=== PATIENT | male | born 1975 | race Caucasian/White ===

== ENCOUNTER 2016-09-22 09:45 | Emergency (ER) | payer OTHER ==
[2016-09-22] MEDS ORDERED: Sodium Chloride 0.9% 2.5 ML Syringe FLUSH PRN (10:22)
[2016-09-22] MEDS ORDERED: Sodium Chloride 0.9% 10 ML Syringe FLUSH PRN (10:22)
[2016-09-22] MEDS ORDERED: Sodium Chloride 0.9% 1,000 ML IV ONE (10:25)
--- NOTE | 2016-09-22 10:33 | EDM.PDOC ---
ED HPI GENERAL MEDICAL PROBLEM - General Chief Complaint: Behavioral/Psych Stated Complaint: ALCOHOL AND DRUG ABUSE Time Seen by Provider: 09/22/16 10:02 - History of Present Illness INITIAL COMMENTS - FREE TEXT/NARRATIVE: HISTORY AND PHYSICAL: History of present illness: The patient is a 41-year-old male with a long-standing history of alcohol abuse and alcoholism who presents today with his after expressing suicidal ideation and hopelessness this morning to his . According to the he has had alcohol problems on and off for long time and it has worsened over the last 6 months and intensified to "drinking until he passes out" the last 3 months. The states that she has noted that he has been very anxious when he is not drinking but he is not vomiting or having any systemic complaints and the patient concurs. She says that when he is drinking he "doesn't care about anything" and she works 2 jobs so she can't assess what is going on when she is not there and she feels unsafe with him at home in this state of mind. According to the patient he has been feeling more depressed and having suicidal thoughts over the last one week but he did not formulate a specific plan but kept thinking that his 4 children would be " better off without him". The patient stated to the today that the only reason why he hasn't formulated a plan and killed himself is because he does not have a life insurance policy and that if he he would be even more of a burden to his family. The says that he has never said anything like this to her in the past so she encouraged him to come here today for help and he agreed. They have been working with their primary care provider to try to get outpatient care for his alcoholism and his depression but they have not gotten any return phone calls from the messages they have left and do not feel that they can move forward in getting help and are at a loss for what to do next. Patient says he does want help and that if he could get better would not feel so hopeless and useless to his family. Medically the patient has a history of hypertension hypercholesterolemia and low testosterone. The patient has followed in our clinic and now is currently affiliated with [facility]. Is not eating as healthfully or as much as usual and does not hydrate much and is drinking mostly consists of hard liquor and large volumes each night. In the ED the patient denies any abdominal pain nausea vomiting fever chills chest pain and consciousness or shakiness. He is not had no recent falls and has no head neck or back pain no extremity complaints. According to the patient and his last drink was approximately 8 or 9 PM yesterday. Review of systems: As per history of present illness and below otherwise all systems reviewed and negative. Past medical history: As per history of present illness and as reviewed below otherwise noncontributory. Surgical history: As per history of present illness and as reviewed below otherwise noncontributory. Social history: No reported history of drug or alcohol abuse. Family history: As per history of present illness and as reviewed below otherwise noncontributory. Physical exam: General: Well-developed mildly overweight male who is nontoxic and is forthcoming with information but is very quiet and somewhat withdrawn. he is occasionally tearful with certa this has been reviewed by me in questions. HEENT: Atraumatic, normocephalic, pupils reactive, negative for conjunctival pallor or scleral icterus, mucous membranes moist tachycardia Lungs: Clear to auscultation, breath sounds equal bilaterally, chest nontender. Heart: S1S2, regular rhythm with slight tachycardia on my evaluation , negative for clicks, rubs, or JVD. Abdomen: Soft, nondistended, nontender. Negative for masses or hepatosplenomegaly. Negative for costovertebral tenderness. Pelvis: Stable nontender. Genitourinary: Deferred. Rectal: Deferred. Extremities: Atraumatic, negative for cords or calf pain. Neurovascular unremarkable. full range of motion without defects or deficits Neuro: Awake, alert, oriented. Cranial nerves II through XII unremarkable. Cerebellum unremarkable. Motor and sensory unremarkable throughout. Exam nonfocal. date is intact. There is no overt tremulousness Diagnostics: EKG CBC CMP TSH UA UDS aspirin and Tylenol levels magnesium level alcohol level Therapeutics: IV fluids, Ativan and as needed and Zofran as needed, banana bag Please note that the patient tells nursing that he did not take his blood pressure medication last night or today so I will give him a dose of each of his medications here in the ER. His repeat blood pressure prior to me dosing these meds as 185/95 1136: Case was discussed with the psychiatrist at [facility] in [place], Dr. Najera who accepts the patient for transfer 1139: Case was discussed with the ER physician at [facility], Dr. Vang will also accepts the patient for transfer. She is aware of all testing results and I will do an SARITA and plan for transfer by ambulance. Patient and are aware of these conversations and our agreement. Patient does not feel shaky or tremulous he has had no nausea no abdominal complaints and states he is hungry with will give him something by prior to the transfer. Impression: Depression with suicidal ideation and alcoholism Definitive disposition and diagnosis as appropriate pending reevaluation and review of above. - Related Data Allergies Allergy/AdvReac Type Severity Reaction Status Date / Time No Known Allergies Allergy Verified 09/22/16 09:57 Home Meds: Home Meds Losartan/Hydrochlorothiazide [Losartan-HCTZ 100-12.5 MG] 1 tab PO DAILY [History] Metoprolol Succinate [Toprol XL] 25 mg PO DAILY 09/22/16 [History] Rosuvastatin [Crestor] 10 mg PO BEDTIME 09/22/16 [History] Sertraline [Zoloft] 100 mg PO BID 09/22/16 [History] tiZANidine [Zanaflex] 4 mg PO ASDIRECTED 09/22/16 [History] Past Medical History Cardiovascular History: Reports: High cholesterol, Hypertension Musculoskeletal History: Reports: Back pain, chronic Psychiatric History: Reports: Addiction, Anxiety, Depression, Other (see below) Other Psychiatric History: Alcoholism Endocrine/Metabolic History: Reports: Obesity/BMI 30+, Other (see below) Other Endocrine/Metabolic History: Borderline DM, low testosterone Social & Family History - Family History Family Medical History: Noncontributory - Tobacco Use Smoking Status *Q: Never Smoker - Caffeine Use Caffeine Use: Reports: Coffee - Recreational Drug Use Recreational Drug Use: No ED ROS GENERAL - Review of Systems Review Of Systems: ROS reveals no pertinent complaints other than HPI. ED EXAM, GENERAL - Physical Exam Exam: See Below (see dictation) Course - Vital Signs Last Recorded V/S: Last Vital Signs Temp 36.9 C 09/22/16 10:04 Pulse 98 09/22/16 11:39 Resp 16 09/22/16 10:04 BP 173/88 H 09/22/16 11:39 Pulse Ox 95 09/22/16 10:04 - Orders/Labs/Meds Orders: Active Orders 24 hr Category Date Time Status EKG Documentation Completion [RC] STAT Care 09/22/16 10:24 Active Sodium Chloride 0.9% [Saline Flush] Med 09/22/16 10:22 Active 10 ml FLUSH ASDIRECTED PRN Sodium Chloride 0.9% [Saline Flush] Med 09/22/16 10:22 Active 2.5 ml FLUSH ASDIRECTED PRN Thiamine [Vitamin B-1] 100 mg Med 09/22/16 11:45 Ordered Sodium Chloride 0.9% [Normal Saline] 100 ml IV ONETIME Saline Lock Insert [OM.PC] Stat Oth 09/22/16 10:23 Ordered Medication Orders Thiamine HCl 100 mg/ Sodium (Chloride) 101 mls @ 999 mls/hr IV ONETIME ONE Stop: 09/22/16 11:51 Sodium Chloride (Saline Flush) 10 ml FLUSH ASDIRECTED PRN PRN Reason: Keep Vein Open Sodium Chloride (Saline Flush) 2.5 ml FLUSH ASDIRECTED PRN PRN Reason: Keep Vein Open Labs: Laboratory Tests 09/22/16 09/22/16 09/22/16 Range/Units 10:29 10:29 10:35 WBC 6.95 (4.0-11.0) K/uL RBC 5.62 (4.50-5.90) M/uL Hgb 16.9 (13.0-17.0) g/dL Hct 48.0 (38.0-50.0) % MCV 85.4 (80.0-98.0) fL MCH 30.1 (27.0-32.0) pg MCHC 35.2 (31.0-37.0) g/dL RDW Std Deviation 40.3 (28.0-62.0) fl RDW Coeff of Abhijit 13 (11.0-15.0) % Plt Count 225 (150-400) K/uL MPV 9.30 (7.40-12.00) fL Neut % (Auto) 62.2 (48.0-80.0) % Lymph % (Auto) 29.6 (16.0-40.0) % Weston % (Auto) 5.9 (0.0-15.0) % Eos % (Auto) 1.9 (0.0-7.0) % Baso % (Auto) 0.4 (0.0-1.5) % Neut # (Auto) 4.3 (1.4-5.7) K/uL Lymph # (Auto) 2.1 (0.6-2.4) K/uL Weston # (Auto) 0.4 (0.0-0.8) K/uL Eos # (Auto) 0.1 (0.0-0.7) K/uL Baso # (Auto) 0.0 (0.0-0.1) K/uL Nucleated RBC % 0.0 /100WBC Nucleated RBCs # 0 K/uL Sodium (136-146) mmol/L Potassium (3.5-5.1) mmol/L Chloride (98-110) mmol/L Carbon Dioxide (21-31) mmol/L BUN (6.0-23.0) mg/dL Creatinine (0.6-1.5) mg/dL Est Cr Clr Drug Dosing mL/min Estimated GFR (MDRD) ml/min Glucose (60-110) mg/dL Calcium (8.8-10.8) mg/dL Magnesium (1.5-2.3) mEq/L Total Bilirubin (0.1-1.5) mg/dL AST (5-40) IU/L ALT (8-54) IU/L Alkaline Phosphatase (40-150) Total Protein (6.0-8.0) g/dL Albumin (3.5-5.0) g/dL Globulin (2.0-3.5) g/dL Albumin/Globulin Ratio (1.3-2.8) TSH 3rd Generation (0.47-5.0) uIU/mL Urine Color DARK YELLOW Urine Appearance CLEAR Urine pH 5.5 (5.0-8.0) Ur Specific [place] >= 1.030 (1.001-1.035) Urine Protein 100 (NEGATIVE) mg/dL Urine Glucose (UA) NEGATIVE (NEGATIVE) mg/dL Urine Ketones TRACE H (NEGATIVE) mg/dL Urine Occult Blood NEGATIVE (NEGATIVE) Urine Nitrite NEGATIVE (NEGATIVE) Urine Bilirubin NEGATIVE (NEGATIVE) Urine Urobilinogen 0.2 (<2.0) EU/dL Ur Leukocyte Esterase NEGATIVE (NEGATIVE) Urine RBC 0-2 (0-2/HPF) Urine WBC 0-1 (0-5/HPF) Ur Epithelial Cells RARE (NONE-FEW) Ur Renal Epithelial Cell RARE Amorphous Sediment LIGHT (NEGATIVE) Urine Bacteria FEW (NEGATIVE) Urine Mucus LIGHT (NONE-MOD) Salicylates (0-20) mg/dL Urine Opiates Screen NEGATIVE (NEGATIVE) Ur Oxycodone Screen NEGATIVE (NEGATIVE) Urine Methadone Screen NEGATIVE (NEGATIVE) Acetaminophen ug/mL Ur Barbiturates Screen NEGATIVE (NEGATIVE) Ur Phencyclidine Scrn NEGATIVE (NEGATIVE) Ur Amphetamine Screen NEGATIVE (NEGATIVE) U Methamphetamines Scrn NEGATIVE (NEGATIVE) U Benzodiazepines Scrn NEGATIVE (NEGATIVE) U Cocaine Metab Screen NEGATIVE (NEGATIVE) U Marijuana (THC) Screen NEGATIVE (NEGATIVE) Ethyl Alcohol mg/dL 09/22/16 Range/Units 10:35 WBC (4.0-11.0) K/uL RBC (4.50-5.90) M/uL Hgb (13.0-17.0) g/dL Hct (38.0-50.0) % MCV (80.0-98.0) fL MCH (27.0-32.0) pg MCHC (31.0-37.0) g/dL RDW Std Deviation (28.0-62.0) fl RDW Coeff of Abhijit (11.0-15.0) % Plt Count (150-400) K/uL MPV (7.40-12.00) fL Neut % (Auto) (48.0-80.0) % Lymph % (Auto) (16.0-40.0) % Weston % (Auto) (0.0-15.0) % Eos % (Auto) (0.0-7.0) % Baso % (Auto) (0.0-1.5) % Neut # (Auto) (1.4-5.7) K/uL Lymph # (Auto) (0.6-2.4) K/uL Weston # (Auto) (0.0-0.8) K/uL Eos # (Auto) (0.0-0.7) K/uL Baso # (Auto) (0.0-0.1) K/uL Nucleated RBC % /100WBC Nucleated RBCs # K/uL Sodium 139 (136-146) mmol/L Potassium 4.3 (3.5-5.1) mmol/L Chloride 105 (98-110) mmol/L Carbon Dioxide 21 (21-31) mmol/L BUN 21 (6.0-23.0) mg/dL Creatinine 1.1 (0.6-1.5) mg/dL Est Cr Clr Drug Dosing 98.96 mL/min Estimated GFR (MDRD) > 60.0 ml/min Glucose 146 H (60-110) mg/dL Calcium 9.7 (8.8-10.8) mg/dL Magnesium 1.6 (1.5-2.3) mEq/L Total Bilirubin 0.6 (0.1-1.5) mg/dL AST 70 H (5-40) IU/L ALT 183 H (8-54) IU/L Alkaline Phosphatase 74 (40-150) Total Protein 8.0 (6.0-8.0) g/dL Albumin 4.7 (3.5-5.0) g/dL Globulin 3.3 (2.0-3.5) g/dL Albumin/Globulin Ratio 1.4 (1.3-2.8) TSH 3rd Generation 0.83 (0.47-5.0) uIU/mL Urine Color Urine Appearance Urine pH (5.0-8.0) Ur Specific [place] (1.001-1.035) Urine Protein (NEGATIVE) mg/dL Urine Glucose (UA) (NEGATIVE) mg/dL Urine Ketones (NEGATIVE) mg/dL Urine Occult Blood (NEGATIVE) Urine Nitrite (NEGATIVE) Urine Bilirubin (NEGATIVE) Urine Urobilinogen (<2.0) EU/dL Ur Leukocyte Esterase (NEGATIVE) Urine RBC (0-2/HPF) Urine WBC (0-5/HPF) Ur Epithelial Cells (NONE-FEW) Ur Renal Epithelial Cell Amorphous Sediment (NEGATIVE) Urine Bacteria (NEGATIVE) Urine Mucus (NONE-MOD) Salicylates < 5.0 (0-20) mg/dL Urine Opiates Screen (NEGATIVE) Ur Oxycodone Screen (NEGATIVE) Urine Methadone Screen (NEGATIVE) Acetaminophen < 3.0 ug/mL Ur Barbiturates Screen (NEGATIVE) Ur Phencyclidine Scrn (NEGATIVE) Ur Amphetamine Screen (NEGATIVE) U Methamphetamines Scrn (NEGATIVE) U Benzodiazepines Scrn (NEGATIVE) U Cocaine Metab Screen (NEGATIVE) U Marijuana (THC) Screen (NEGATIVE) Ethyl Alcohol < 10.0 mg/dL Meds: Medications Generic Name Dose Route Start Last Admin Trade Name Freq PRN Reason Stop Dose Admin Thiamine HCl 100 mg/ Sodium 101 mls @ 999 mls/hr 09/22/16 11:45 Chloride IV 09/22/16 11:51 ONETIME ONE Sodium Chloride 10 ml 09/22/16 10:22 Saline Flush FLUSH ASDIRECTED PRN Keep Vein Open Sodium Chloride 2.5 ml 09/22/16 10:22 Saline Flush FLUSH ASDIRECTED PRN Keep Vein Open Discontinued Medications Generic Name Dose Route Start Last Admin Trade Name Ev PRN Reason Stop Dose Admin HCTZ/Losartan Potassium 1 tab 09/22/16 11:25 09/22/16 11:39 Hyzaar 50-12.5 Mg PO 09/22/16 11:26 1 tab DAILY ONE Administration Sodium Chloride 1,000 mls @ 999 mls/hr 09/22/16 10:25 09/22/16 10:37 Normal Saline IV 09/22/16 11:25 999 mls/hr STAT ONE Administration Metoprolol Succinate 25 mg 09/22/16 11:25 09/22/16 11:39 Toprol Xl PO 09/22/16 11:26 25 mg ONETIME ONE Administration Departure - Departure Time of Disposition: 11:52 Disposition: DC/Tfer to Psych Hosp/Unit 65 Condition: good Clinical Impression: Alcohol abuse, Suicidal ideation, Depressive disorder Forms: ED Department Discharge - My Orders Last 24 Hours: My Active Orders 09/22/16 10:22 Sodium Chloride 0.9% [Saline Flush] 10 ml FLUSH ASDIRECTED PRN Sodium Chloride 0.9% [Saline Flush] 2.5 ml FLUSH ASDIRECTED PRN 09/22/16 10:23 Saline Lock Insert [OM.PC] Stat 09/22/16 10:24 EKG Documentation Completion [RC] STAT 09/22/16 11:45 Thiamine [Vitamin B-1] 100 mg Sodium Chloride 0.9% [Normal Saline] 100 ml IV ONETIME - Assessment/Plan Last 24 Hours: My Active Orders 09/22/16 10:22 Sodium Chloride 0.9% [Saline Flush] 10 ml FLUSH ASDIRECTED PRN Sodium Chloride 0.9% [Saline Flush] 2.5 ml FLUSH ASDIRECTED PRN 09/22/16 10:23 Saline Lock Insert [OM.PC] Stat 09/22/16 10:24 EKG Documentation Completion [RC] STAT 09/22/16 11:45 Thiamine [Vitamin B-1] 100 mg Sodium Chloride 0.9% [Normal Saline] 100 ml IV ONETIME
[2016-09-22 11:04] LABS: CHLORIDE,CL 105 mmol/L (98-110); SODIUM,NA 139 mmol/L (136-146)
[2016-09-22 11:10] LABS: ACETAMINOPHEN < 3.0 ug/mL
[2016-09-22] MEDS ORDERED: Hydrochlorothiazide/Losartan 12.5-50 mg Tab PO ONE (11:25)
[2016-09-22] MEDS ORDERED: Metoprolol Succinate 25 MG Tab.ER PO ONE (11:25)
[2016-09-22] MEDS ORDERED: Thiamine 100 MG in Sodium Chloride 0.9% 100 ML IV ONE ×2 (11:45→12:15)
[2016-09-22 12:47] VITALS: BP 185/11
== END 2016-09-22 12:44 ==
LOC: MW.ED 09:45
DX: F10.10 Alcohol abuse, uncomplicated (principal); F32.9 Major depressive disorder, single episode, unspecified; R45.851 Suicidal ideations; E78.00 Pure hypercholesterolemia, unspecified; I10 Essential (primary) hypertension; E66.9 Obesity, unspecified; Z68.30 Body mass index [BMI] 30.0-30.9, adult
CPT/HCPCS: 36415; 80053; 80305; 81001; 83735; 84443; 85025; 93005; 96361; 96374; 99285; A9270; G0480; J3411; J7030; J7040